=== PATIENT | male | born 1965 | race Two or more races ===

== ENCOUNTER 2023-04-16 08:29 | Day surgery (SDC) | payer OTHER ==
[2023-04-14 15:03] VITALS: BMI 25.4
[2023-04-16] MEDS ORDERED: BUPIVACAINE HCL/EPINEPHRINE/PF 30 ML VIAL IJ ONE (11:32)
[2023-04-16] MEDS ORDERED: MIDAZOLAM HCL 2 MG/2 ML SINGLE DOSE VIAL ONE ×3 (12:21→12:23)
[2023-04-16] MEDS ORDERED: ROPIVACAINE HCL 0.5% 30ML VIAL ONE (12:25)
[2023-04-16] MEDS ORDERED: PROPOFOL 40 ML ONE (12:47)
[2023-04-16] MEDS ORDERED: ONDANSETRON 4 MG/2 ML VIAL ONE (13:04)
[2023-04-16] MEDS ORDERED: ALBUTEROL SO4 HFA INHALER IH ONE (13:04)
[2023-04-16] MEDS ORDERED: ceFAZolin SODIUM 1 GM VIAL ONE (13:04)
[2023-04-16] MEDS ORDERED: METOCLOPRAMIDE HCL INJECTION 10 MG/2 ML VIAL ONE (13:04)
[2023-04-16] MEDS ORDERED: DEXAMETHASONE SOD PHOSPHATE 4 MG/1 ML VIAL ONE ×2 (13:04)
[2023-04-16] MEDS ORDERED: oxyCODONE HCL 5 MG TABLET PO PRN ×2 (14:17→15:19)
[2023-04-16] MEDS ORDERED: ONDANSETRON 4 MG/2 ML VIAL IVPUSH PRN ×2 (14:17→15:19)
[2023-04-16] MEDS ORDERED: LACTATED RINGERS SOLUTION 1,000 ML IV SCH ×2 (14:30→15:30)
[2023-04-16] MEDS ORDERED: ACETAMINOPHEN 1000 MG/100 ML BAG IVPB ONE (15:37)
[2023-04-16] MEDS ORDERED: ACETAMINOPHEN INJECTION 100 ML IVPB ONE (15:57)
[2023-04-16 16:27] VITALS: RESP 20; TEMP 97.4
[2023-04-16 17:54] VITALS: BP 148/80; PULSE 84
== END 2023-04-16 16:55 | disposition home or self-care (01) ==
LOC: FASU 08:29
PROVIDERS: ATTEND Orthopaedic Surgery
PROC: 0RNJ4ZZ Release Right Shoulder Joint, Percutaneous Endoscopic Approach (ICD-10-PCS; 2023-04-16)
PROC: 0LS34ZZ Reposition Right Upper Arm Tendon, Percutaneous Endoscopic Approach (ICD-10-PCS; principal; 2023-04-16 13:19)
PROC: 0RHJ44Z Insertion of Internal Fixation Device into Right Shoulder Joint, Percutaneous Endoscopic Approach (ICD-10-PCS; 2023-04-16 13:19)
PROC: 0LM14ZZ Reattachment of Right Shoulder Tendon, Percutaneous Endoscopic Approach (ICD-10-PCS; 2023-04-16 13:19)
DX: M75.121 Complete rotator cuff tear or rupture of right shoulder, not specified as traumatic (principal); M75.21 Bicipital tendinitis, right shoulder; M75.51 Bursitis of right shoulder; M75.111 Incomplete rotator cuff tear or rupture of right shoulder, not specified as traumatic; M75.01 Adhesive capsulitis of right shoulder; M65.811 Other synovitis and tenosynovitis, right shoulder; S43.431A Superior glenoid labrum lesion of right shoulder, initial encounter; X58.XXXA Exposure to other specified factors, initial encounter; Y92.9 Unspecified place or not applicable; Y93.9 Activity, unspecified
CPT/HCPCS: 29823; 29824; 29826; 29827; 29828; C1713; 82962; 88304-TC; 94760